=== PATIENT | female | born 1975 | race Caucasian/White ===

== ENCOUNTER 2016-07-24 15:52 | Emergency (ER) | payer MEDICAID ==
--- NOTE | 2016-08-01 21:25 | ER ---
ADMIT: 07/24/2016 RM/LOC: ER [facility] MR#: [id number] [address] [id number] KALEB MONTAGUE [address] [place] [id number] Emergency Room Report SEX: F AGE: 40 : 1975 DATE: 07/24/2016 ADDENDUM: This patient comes to the ER because she feels very dehydrated and extremely weak. She, yesterday, had 16 teeth extracted. She was put on amoxicillin and given ibuprofen and Tylenol for pain. She states the pain is severe, and her says she has not eaten anything in 2 days. On physical exam, she is quite anxious and shaky. I do not see any areas of abscess and the incision sites in her gumline on both the top and the bottom. No cervical lymphadenopathy. Abdomen is soft. IV of normal saline was started. She was given a liter of bolus with Toradol and Zofran and Dilaudid. She felt a lot better after getting fluids. I wrote a prescription for [place]. We will have her decrease the Tylenol, and she is to follow up with her dentist and her family doctor as needed. Please see my T-sheet. CALIXTO Daniel / Miguelangel Rodriguez MD / gerard JOB #: [id number] CC: Miguelangel Rodriguez MD, Attending Physician UNKNOWN, Family Physician
== END 2016-07-24 18:45 | disposition home or self-care (01) ==
LOC: ER 15:52
DX: K13.79 Other lesions of oral mucosa (principal); Z98.818 Other dental procedure status